=== PATIENT | male | born 1960 | race Caucasian/White ===

== ENCOUNTER 2023-01-16 11:58 | Emergency (ER) | payer OTHER ==
[~2023-01-16] VITALS: Ht 180.3 cm; Wt 119.3 kg
[2023-01-16 12:39] LABS: BASO # 0.1 10*3/uL (0.0-0.1); EOS # 0.1 10*3/uL (0.0-0.4); EOS % 1.5 % (1.0-4.0); HEMATOCRIT 43.9 % (42.0-52.0); LYMPH # 1.6 10*3/uL (1.3-4.4); LYMPH % 18.8 % (27.0-41.0); MEAN CELL VOLUME 86.4 fl (80.0-94.0); MEAN CORPUSCULAR HGB 28.7 pg (27.0-31.0); MEAN CORPUSCULAR HGB CONC 33.3 g/dl (33.0-37.0); MEAN PLATELET VOLUME 11.5 fl (9.6-12.3); MONO # 0.6 10*3/uL (0.1-1.0); MONO % 6.8 % (3.0-9.0); NEUT # 5.9 10*3/uL (2.3-7.9); NEUT % 71.3 % (47.0-73.0); PLATELET COUNT AUTOMATED 190 10*3/uL (130-400); RED BLOOD COUNT 5.08 10*6/uL (4.50-5.90); RED CELL DISTRI WIDTH 12.8 % (0-14.5); WHITE BLOOD COUNT 8.2 10*3/uL (4.8-10.8)
[2023-01-16 13:02] LABS: ALKALINE PHOSPHATASE 98 U/L (46-116); BUN 20 mg/dl (9-23); CHLORIDE 104 mmol/L (98-107); LIPASE 31 U/L (12-53); POTASSIUM 4.4 mmol/L (3.4-5.1); SGPT/ALT 17 U/L (10-49); TOTAL PROTEIN 6.8 gm/dL (6.0-8.0)
[2023-01-16 13:17] LABS: ACT PARTIAL THROMBO TIME 25.6 SECONDS (20.0-32.1)
[2023-01-16] MEDS ORDERED: MECLIZINE HCL25 M2 PO (17:56)
== END 2023-01-16 18:30 | disposition left against medical advice (07) ==
LOC: ED 11:58
PROVIDERS: Emergency Medicine
DX: R42 Dizziness and giddiness (principal); I50.9 Heart failure, unspecified; R51.9 Headache, unspecified; Z88.8 Allergy status to other drugs, medicaments and biological substances

== ENCOUNTER 2023-01-23 11:03 | Emergency (ER) | payer OTHER ==
[~2023-01-23] VITALS: Ht 180.3 cm; Wt 119.3 kg
[~2023-01-23 11:03] MED LIST: MECLIZINE HCL25 M2 PO
[2023-01-23 11:40] VITALS: BP 78/62
[2023-01-23 12:00] LABS: BASO # 0.1 10*3/uL (0.0-0.1); EOS # 0.2 10*3/uL (0.0-0.4); EOS % 1.8 % (1.0-4.0); HEMATOCRIT 43.3 % (42.0-52.0); LYMPH # 1.8 10*3/uL (1.3-4.4); LYMPH % 20.5 % (27.0-41.0); MEAN CELL VOLUME 86.4 fl (80.0-94.0); MEAN CORPUSCULAR HGB 28.9 pg (27.0-31.0); MEAN CORPUSCULAR HGB CONC 33.5 g/dl (33.0-37.0); MEAN PLATELET VOLUME 10.9 fl (9.6-12.3); MONO # 0.5 10*3/uL (0.1-1.0); MONO % 5.4 % (3.0-9.0); NEUT # 6.2 10*3/uL (2.3-7.9); NEUT % 70.7 % (47.0-73.0); PLATELET COUNT AUTOMATED 178 10*3/uL (130-400); RED BLOOD COUNT 5.01 10*6/uL (4.50-5.90); RED CELL DISTRI WIDTH 12.8 % (0-14.5); WHITE BLOOD COUNT 8.8 10*3/uL (4.8-10.8)
[2023-01-23 12:04] VITALS: BP 72/38
[2023-01-23] MEDS ORDERED: TAMSULOSIN HCL0.4 MG PO (12:09)
[2023-01-23] MEDS ORDERED: CARVEDILOL6.25 MG PO (12:09)
[2023-01-23] MEDS ORDERED: TOUJEO MAX300 UNIT/1 SQ (12:09)
[2023-01-23] MEDS ORDERED: ASPIRIN ADULT L81 M2 PO (12:09)
[2023-01-23] MEDS ORDERED: FINASTERIDE5 M1 PO (12:10)
[2023-01-23] MEDS ORDERED: FUROSEMIDE20 M1 PO (12:10)
[2023-01-23] MEDS ORDERED: PANTOPRAZOLE SO40 MG PO (12:10)
[2023-01-23] MEDS ORDERED: ROSUVASTATIN CA20 MG PO (12:11)
[2023-01-23] MEDS ORDERED: LOSARTAN POTAS100 M1 PO (12:11)
[2023-01-23] MEDS ORDERED: GABAPENTIN400 MG PO (12:11)
[2023-01-23] MEDS ORDERED: TOPIRAMATE25 M3 PO (12:12)
[2023-01-23] MEDS ORDERED: CLOPIDOGREL75 MG PO (12:12)
[2023-01-23] MEDS ORDERED: NOVOLOG FL100 UNIT/2 SC (12:12)
[2023-01-23 12:16] LABS: TOTAL PROTEIN 6.8 gm/dL (6.0-8.0)
[2023-01-23 12:29] VITALS: BP 103/56
[2023-01-23 12:49] VITALS: BP 92/54
[2023-01-23 14:23] VITALS: BP 114/61
== END 2023-01-23 16:46 | disposition left against medical advice (07) ==
LOC: ED 11:03 → EDHOLD 13:50 → ED 13:50 → EDHOLD 14:09 → 5E 16:11 → ED 16:46
PROVIDERS: Emergency Medicine
DX: R42 Dizziness and giddiness (principal); R10.32 Left lower quadrant pain; H53.8 Other visual disturbances; I11.0 Hypertensive heart disease with heart failure; I50.9 Heart failure, unspecified; E78.5 Hyperlipidemia, unspecified; Z90.49 Acquired absence of other specified parts of digestive tract; Z98.890 Other specified postprocedural states; K21.9 Gastro-esophageal reflux disease without esophagitis; G43.909 Migraine, unspecified, not intractable, without status migrainosus; I25.10 Atherosclerotic heart disease of native coronary artery without angina pectoris; Z88.8 Allergy status to other drugs, medicaments and biological substances; I95.9 Hypotension, unspecified; N17.0 Acute kidney failure with tubular necrosis; N40.0 Benign prostatic hyperplasia without lower urinary tract symptoms; Z79.4 Long term (current) use of insulin; E11.65 Type 2 diabetes mellitus with hyperglycemia; E11.40 Type 2 diabetes mellitus with diabetic neuropathy, unspecified

== ENCOUNTER → 2023-03-27 | Outpatient (CLI) | payer OTHER ==
[~2023-03-27] MED LIST changes: +ASPIRIN ADULT L81 M2 PO; +CARVEDILOL6.25 MG PO; +CLOPIDOGREL75 MG PO; +FINASTERIDE5 M1 PO; +FUROSEMIDE20 M1 PO; +GABAPENTIN400 MG PO; +LOSARTAN POTAS100 M1 PO; +NOVOLOG FL100 UNIT/2 SC; +PANTOPRAZOLE SO40 MG PO; +ROSUVASTATIN CA20 MG PO; +TAMSULOSIN HCL0.4 MG PO; +TOPIRAMATE25 M3 PO; +TOUJEO MAX300 UNIT/1 SQ
== END | disposition home or self-care (01) ==
LOC: RESCLI 00:33
PROVIDERS: ATTEND Internal Medicine
DX: E11.65 Type 2 diabetes mellitus with hyperglycemia (principal); F32.9 Major depressive disorder, single episode, unspecified; G89.29 Other chronic pain; N40.0 Benign prostatic hyperplasia without lower urinary tract symptoms; M79.643 Pain in unspecified hand; R53.1 Weakness; H81.03 Meniere's disease, bilateral; I50.9 Heart failure, unspecified; G62.9 Polyneuropathy, unspecified; I25.10 Atherosclerotic heart disease of native coronary artery without angina pectoris; G43.909 Migraine, unspecified, not intractable, without status migrainosus; R11.0 Nausea; K21.9 Gastro-esophageal reflux disease without esophagitis; Z98.890 Other specified postprocedural states; Z82.49 Family history of ischemic heart disease and other diseases of the circulatory system; Z88.8 Allergy status to other drugs, medicaments and biological substances; Z79.82 Long term (current) use of aspirin; Z79.899 Other long term (current) drug therapy

== ENCOUNTER → 2023-05-07 | Outpatient (CLI) | payer OTHER | END | disposition home or self-care (01) | LOC: RAD 14:39 | PROVIDERS: ATTEND Internal Medicine | DX: M19.042 Primary osteoarthritis, left hand (principal) ==